=== PATIENT | male | born 1965 | race African-American/Black ===

== ENCOUNTER 2022-11-07 12:32 | Inpatient (IN) | payer OTHER ==
[2022-11-07] MEDS ORDERED: ACETAMINOPHEN 325 MG TABLET (FP) PO PRN (15:37)
[2022-11-07] MEDS ORDERED: POLYETHYLENE GLYCOL (HEALTHYLAX) 3350 17 GM PACKET PO PRN (15:37)
[2022-11-07] MEDS ORDERED: BENZOCAINE/MENTHOL (CHLORASEPTIC ) LOZENGE MM PRN (15:37)
[2022-11-07] MEDS ORDERED: NICOTINE POLACRILEX 4 MG GUM BUC PRN (15:37)
[2022-11-07] MEDS ORDERED: MAGNESIUM HYDROX 2400MG/30ML ORAL SUSPENSION 30 ML CUP PO PRN (15:37)
[2022-11-07] MEDS ORDERED: IBUPROFEN 400 MG TABLET (FP) PO PRN (15:37)
[2022-11-07] MEDS ORDERED: MAG HYDROX/AL HYDROX/SIMETH 30 ML UNIT-DOSE CUP PO PRN (15:37)
[2022-11-07] MEDS ORDERED: LOPERAMIDE HCL 2 MG CAPSULE PO PRN (15:37)
[2022-11-07] MEDS ORDERED: guaiFENesin 200 MG/10 ML 10 ML UNIT-DOSE CUPS PO PRN (15:37)
[2022-11-07] MEDS ORDERED: ALBUTEROL SO4 HFA INHALER IH PRN (16:26)
[2022-11-07 16:39] VITALS: BMI 23.1
[2022-11-07] MEDS ORDERED: BUPRENORPHINE/NALOXONE 8 MG/2 MG FILM PACKET SL SCH (20:00)
[2022-11-07] MEDS ORDERED: TUBERCULIN PPD 5 TU/0.1ML VIAL ID ONE ×2 (21:04→23:15)
[2022-11-07] MEDS: MELATONIN 5 MG TABLETS PO SCH (21:46)
[2022-11-07] MEDS: GABAPENTIN 400 MG CAPSULE PO SCH (21:49)
[2022-11-07] MEDS: BUDESONIDE/FORMETEROL FUMARATE 80/4.5 mcg INHALER IH SCH (21:49)
[2022-11-07] MEDS: metFORMIN HCL 500 MG TABLET (FP) PO SCH (21:49)
[2022-11-07] MEDS: hydrOXYzine PAMOATE 25 MG CAPSULE (FP) PO PRN (21:50)
[2022-11-07] MEDS: THIAMINE HCL 100 MG TABLET (FP) PO SCH (21:51)
[2022-11-07] MEDS: BUPRENORPHINE/NALOXONE 8 MG/2 MG FILM PACKET SL SCH (21:53)
[2022-11-08] MEDS: BUPRENORPHINE/NALOXONE 8 MG/2 MG FILM PACKET SL SCH ×3 (06:45→21:23)
[2022-11-08] MEDS: metFORMIN HCL 500 MG TABLET (FP) PO SCH ×2 (06:45→16:17)
[2022-11-08 09:28] VITALS: RESP 18
[2022-11-08] MEDS: PRENATAL VITAMINS W/ FOLIC ACID TABLET (FP) PO SCH (09:44)
[2022-11-08] MEDS: GABAPENTIN 400 MG CAPSULE PO SCH ×2 (09:44→21:24)
[2022-11-08] MEDS: SPIRONOLACTONE 25 MG TABLET PO SCH (09:44)
[2022-11-08] MEDS: BUDESONIDE/FORMETEROL FUMARATE 80/4.5 mcg INHALER IH SCH ×2 (09:44→21:24)
[2022-11-08] MEDS: HYDROCHLOROTHIAZIDE 25 MG TABLET (FP) PO SCH (10:37)
[2022-11-08] MEDS: LISINOPRIL 10 MG TABLET PO SCH (10:37)
[2022-11-08] MEDS: MONTELUKAST NA 10 MG TABLET PO SCH (10:37)
[2022-11-08] MEDS: ARIPiprazole 15 MG TABLET PO SCH (12:10)
[2022-11-08] MEDS: SERTRALINE HCL 50 MG TABLET (FP) PO SCH (12:10)
[2022-11-08 14:36] LABS: MCH 29.4 pg (25.7-33.7); MCHC 33.4 g/dl (32.0-35.9); MEAN CELL VOLUME 88.1 fl (80-96); MEAN PLT VOLUME 9.3 fl (7.5-11.1); PLATELET COUNT 297 10^3/uL (134-434); RBC 4.43 M/mm3 (4.00-5.60); RDW 13.8 % (11.9-15.9); WHITE BLOOD COUNT 7.2 K/mm3 (4.0-10.0)
[2022-11-08 15:37] LABS: ALBUMIN 3.5 g/dl (3.4-5.0); BLOOD UREA NITROGEN 14.5 mg/dL (7-18); CALCIUM 8.9 mg/dL (8.5-10.1)
[2022-11-08 15:42] LABS: BILIRUBIN,TOTAL 0.3 mg/dL (0.2-1); TOT PROT 6.6 g/dl (6.4-8.2)
[2022-11-08] MEDS: THIAMINE HCL 100 MG TABLET (FP) PO SCH (21:23)
[2022-11-08] MEDS: MELATONIN 5 MG TABLETS PO SCH (21:24)
[2022-11-08] MEDS: ATORVASTATIN CA 40 MG TABLET (FP) PO SCH (21:25)
[2022-11-08] MEDS: traZODone HCL 100 MG TABLET (FP) PO SCH (21:25)
[2022-11-09] MEDS: BUPRENORPHINE/NALOXONE 8 MG/2 MG FILM PACKET SL SCH ×3 (06:27→19:53)
[2022-11-09] MEDS: NICOTINE 10 MG CARTRIDGE (INHALER) IH PRN (06:29)
[2022-11-09] MEDS: metFORMIN HCL 500 MG TABLET (FP) PO SCH ×2 (07:07→16:52)
[2022-11-09 09:39] LABS: EPI CELLS 6 /uL (0-25.1); HYALINE CASTS 0 /uL (0-3.1); PH,URINE 6.5 (5.0-8.0); URINE APPEARANCE CLEAR; URINE BACTERIA 10 /uL (0-1359); URINE BILIRUBIN NEGATIVE (NEGATIVE); URINE COLOR YELLOW; URINE GLUCOSE (UA) NEGATIVE (NEGATIVE); URINE KETONE NEGATIVE (NEGATIVE); URINE LEUK ESTERASE 1+ (NEGATIVE); URINE NITRITE NEGATIVE (NEGATIVE); URINE PROTEIN NEGATIVE (NEGATIVE); URINE RBC 24 /uL (0-23.9); URINE UROBILINOGEN 0.2 mg/dL (0.2-1.0); URINE WBC 97 /uL (0-25.8)
[2022-11-09] MEDS: HYDROCHLOROTHIAZIDE 25 MG TABLET (FP) PO SCH (09:39)
[2022-11-09] MEDS: SERTRALINE HCL 50 MG TABLET (FP) PO SCH (09:39)
[2022-11-09] MEDS: MONTELUKAST NA 10 MG TABLET PO SCH (09:39)
[2022-11-09] MEDS: LISINOPRIL 10 MG TABLET PO SCH (09:39)
[2022-11-09] MEDS: GABAPENTIN 400 MG CAPSULE PO SCH ×2 (09:39→21:30)
[2022-11-09] MEDS: PRENATAL VITAMINS W/ FOLIC ACID TABLET (FP) PO SCH (09:40)
[2022-11-09] MEDS: ARIPiprazole 15 MG TABLET PO SCH (09:40)
[2022-11-09] MEDS: BUDESONIDE/FORMETEROL FUMARATE 80/4.5 mcg INHALER IH SCH ×2 (09:40→21:31)
[2022-11-09] MEDS: SPIRONOLACTONE 25 MG TABLET PO SCH (10:45)
[2022-11-09] MEDS: hydrOXYzine PAMOATE 25 MG CAPSULE (FP) PO PRN (13:32)
[2022-11-09] MEDS: traZODone HCL 100 MG TABLET (FP) PO SCH (21:30)
[2022-11-09] MEDS: MELATONIN 5 MG TABLETS PO SCH (21:30)
[2022-11-09] MEDS: THIAMINE HCL 100 MG TABLET (FP) PO SCH (21:30)
[2022-11-09] MEDS: ATORVASTATIN CA 40 MG TABLET (FP) PO SCH (21:31)
[2022-11-10] MEDS: BUPRENORPHINE/NALOXONE 8 MG/2 MG FILM PACKET SL SCH ×3 (06:28→20:01)
[2022-11-10] MEDS: metFORMIN HCL 500 MG TABLET (FP) PO SCH ×2 (06:30→16:48)
[2022-11-10] MEDS: GABAPENTIN 400 MG CAPSULE PO SCH ×2 (09:34→21:19)
[2022-11-10] MEDS: LISINOPRIL 10 MG TABLET PO SCH (09:34)
[2022-11-10] MEDS: HYDROCHLOROTHIAZIDE 25 MG TABLET (FP) PO SCH (09:34)
[2022-11-10] MEDS: PRENATAL VITAMINS W/ FOLIC ACID TABLET (FP) PO SCH (09:34)
[2022-11-10] MEDS: MONTELUKAST NA 10 MG TABLET PO SCH (09:34)
[2022-11-10] MEDS: SERTRALINE HCL 50 MG TABLET (FP) PO SCH (09:35)
[2022-11-10] MEDS: BUDESONIDE/FORMETEROL FUMARATE 80/4.5 mcg INHALER IH SCH ×2 (09:35→21:20)
[2022-11-10] MEDS: ARIPiprazole 15 MG TABLET PO SCH (09:35)
[2022-11-10] MEDS: SPIRONOLACTONE 25 MG TABLET PO SCH (10:00)
[2022-11-10] MEDS: ATORVASTATIN CA 40 MG TABLET (FP) PO SCH (21:19)
[2022-11-10] MEDS: THIAMINE HCL 100 MG TABLET (FP) PO SCH (21:19)
[2022-11-10] MEDS: traZODone HCL 100 MG TABLET (FP) PO SCH (21:20)
[2022-11-10] MEDS: MELATONIN 5 MG TABLETS PO SCH (21:20)
[2022-11-10] MEDS: P-EPHED 60MG/TRIPROLIDI 2.5MG TABLET PO PRN (22:46)
[2022-11-11] MEDS: BUPRENORPHINE/NALOXONE 8 MG/2 MG FILM PACKET SL SCH ×3 (06:20→21:19)
[2022-11-11] MEDS: metFORMIN HCL 500 MG TABLET (FP) PO SCH ×2 (07:04→17:02)
[2022-11-11] MEDS: MONTELUKAST NA 10 MG TABLET PO SCH (09:38)
[2022-11-11] MEDS: LISINOPRIL 10 MG TABLET PO SCH (09:38)
[2022-11-11] MEDS: ARIPiprazole 15 MG TABLET PO SCH (09:38)
[2022-11-11] MEDS: GABAPENTIN 400 MG CAPSULE PO SCH ×2 (09:38→21:20)
[2022-11-11] MEDS: SERTRALINE HCL 50 MG TABLET (FP) PO SCH (09:39)
[2022-11-11] MEDS: HYDROCHLOROTHIAZIDE 25 MG TABLET (FP) PO SCH (09:39)
[2022-11-11] MEDS: PRENATAL VITAMINS W/ FOLIC ACID TABLET (FP) PO SCH (09:39)
[2022-11-11] MEDS: SPIRONOLACTONE 25 MG TABLET PO SCH (09:39)
[2022-11-11] MEDS: BUDESONIDE/FORMETEROL FUMARATE 80/4.5 mcg INHALER IH SCH ×2 (09:40→21:22)
[2022-11-11] MEDS: P-EPHED 60MG/TRIPROLIDI 2.5MG TABLET PO PRN (15:29)
[2022-11-11] MEDS: THIAMINE HCL 100 MG TABLET (FP) PO SCH (21:20)
[2022-11-11] MEDS: MELATONIN 5 MG TABLETS PO SCH (21:20)
[2022-11-11] MEDS: traZODone HCL 100 MG TABLET (FP) PO SCH (21:20)
[2022-11-11] MEDS: ATORVASTATIN CA 40 MG TABLET (FP) PO SCH (21:20)
[2022-11-12] MEDS: BUPRENORPHINE/NALOXONE 8 MG/2 MG FILM PACKET SL SCH ×3 (06:16→21:33)
[2022-11-12] MEDS: metFORMIN HCL 500 MG TABLET (FP) PO SCH ×2 (06:38→16:50)
[2022-11-12] MEDS: PRENATAL VITAMINS W/ FOLIC ACID TABLET (FP) PO SCH (09:56)
[2022-11-12] MEDS: BUDESONIDE/FORMETEROL FUMARATE 80/4.5 mcg INHALER IH SCH ×2 (09:57→21:33)
[2022-11-12] MEDS: ARIPiprazole 15 MG TABLET PO SCH (09:57)
[2022-11-12] MEDS: MONTELUKAST NA 10 MG TABLET PO SCH (09:57)
[2022-11-12] MEDS: GABAPENTIN 400 MG CAPSULE PO SCH ×2 (09:57→21:33)
[2022-11-12] MEDS: LISINOPRIL 10 MG TABLET PO SCH (09:58)
[2022-11-12] MEDS: SERTRALINE HCL 50 MG TABLET (FP) PO SCH (09:58)
[2022-11-12] MEDS: HYDROCHLOROTHIAZIDE 25 MG TABLET (FP) PO SCH (11:00)
[2022-11-12] MEDS: SPIRONOLACTONE 25 MG TABLET PO SCH (11:00)
[2022-11-12] MEDS: NICOTINE 10 MG CARTRIDGE (INHALER) IH PRN (11:01)
[2022-11-12] MEDS ORDERED: guaiFENesin 600 MG TABLET.ER (FP) PO SCH (13:15)
[2022-11-12] MEDS: BACLOFEN 10 MG TABLET (FP) PO SCH ×2 (14:21→21:33)
[2022-11-12] MEDS: guaiFENesin 600 MG TABLET.ER (FP) PO SCH (21:33)
[2022-11-12] MEDS: traZODone HCL 100 MG TABLET (FP) PO SCH (21:33)
[2022-11-12] MEDS: THIAMINE HCL 100 MG TABLET (FP) PO SCH (21:33)
[2022-11-12] MEDS: MELATONIN 5 MG TABLETS PO SCH (21:34)
[2022-11-12] MEDS: ATORVASTATIN CA 40 MG TABLET (FP) PO SCH (21:34)
[2022-11-12] MEDS: P-EPHED 60MG/TRIPROLIDI 2.5MG TABLET PO PRN (22:51)
[2022-11-13] MEDS: BUPRENORPHINE/NALOXONE 8 MG/2 MG FILM PACKET SL SCH ×2 (06:53→13:13)
[2022-11-13] MEDS: metFORMIN HCL 500 MG TABLET (FP) PO SCH (06:53)
[2022-11-13] MEDS: BACLOFEN 10 MG TABLET (FP) PO SCH ×2 (06:53→13:13)
[2022-11-13 10:05] VITALS: BP 111/66; PULSE 79; TEMP 97.9
[2022-11-13] MEDS: SERTRALINE HCL 50 MG TABLET (FP) PO SCH (10:13)
[2022-11-13] MEDS: BUDESONIDE/FORMETEROL FUMARATE 80/4.5 mcg INHALER IH SCH (10:13)
[2022-11-13] MEDS: SPIRONOLACTONE 25 MG TABLET PO SCH (10:14)
[2022-11-13] MEDS: LISINOPRIL 10 MG TABLET PO SCH (10:14)
[2022-11-13] MEDS: guaiFENesin 600 MG TABLET.ER (FP) PO SCH (10:14)
[2022-11-13] MEDS: ARIPiprazole 15 MG TABLET PO SCH (10:14)
[2022-11-13] MEDS: GABAPENTIN 400 MG CAPSULE PO SCH (10:14)
[2022-11-13] MEDS: PRENATAL VITAMINS W/ FOLIC ACID TABLET (FP) PO SCH (10:15)
[2022-11-13] MEDS: HYDROCHLOROTHIAZIDE 25 MG TABLET (FP) PO SCH (10:16)
[2022-11-13] MEDS: MONTELUKAST NA 10 MG TABLET PO SCH (10:17)
== END 2022-11-13 16:05 | disposition home or self-care (01) | DRG 772 ==
LOC: YASAS 12:32 → Y3E 19:58 → Y3W 11-08 11:33 → Y5N 11-08 11:35
PROVIDERS: ADMIT Allergy & Immunology; ATTEND Psychiatry & Neurology Pain Medicine
PROC: HZ42ZZZ Group Counseling for Substance Abuse Treatment, Cognitive-Behavioral (ICD-10-PCS; principal; 2022-11-07)
DX: F14.20 Cocaine dependence, uncomplicated (principal); F11.20 Opioid dependence, uncomplicated; F12.20 Cannabis dependence, uncomplicated; F17.210 Nicotine dependence, cigarettes, uncomplicated; F22 Delusional disorders; F19.282 Other psychoactive substance dependence with psychoactive substance-induced sleep disorder; F19.24 Other psychoactive substance dependence with psychoactive substance-induced mood disorder; F32.9 Major depressive disorder, single episode, unspecified; U07.1 COVID-19; I10 Essential (primary) hypertension; E78.5 Hyperlipidemia, unspecified; E11.9 Type 2 diabetes mellitus without complications; Z79.84 Long term (current) use of oral hypoglycemic drugs; M51.26 Other intervertebral disc displacement, lumbar region; M54.50 Low back pain, unspecified; G89.29 Other chronic pain
CPT/HCPCS: 36415; 80053; 81003; 82962; 85027; 86780; 87811; C9803-CS; J0475; U0003; U0005